=== PATIENT | male | born 1955 | race Two or more races ===

== ENCOUNTER 2017-03-22 21:45 | Emergency (ER) | payer SELFPAY ==
[~2017-03-22 21:45] MED LIST: AMOXICILLIN500 M1 PO; CIPRO250 M2 PO; CIPRO500 M2 PO; FLOMAX0.4 M1 PO; LISINOPRIL10 M1 PO; MIRALAX17 G2 PO; TAMSULOSIN HCL0.4 M1 PO; ZESTRIL10 M3 PO
[2017-03-22 23:22] LABS: URINE BILIRUBIN NEGATIVE (NEG); URINE BLOOD LARGE (NEG); URINE GLUCOSE (UA) NEGATIVE (NEG); URINE KETONE MODERATE (NEG); URINE LEUKOCYTE ESTERASE POSITIVE (NEG); URINE NITRITE NEGATIVE (NEG); URINE PROTEIN LARGE (NEG)
[2017-03-22 23:23] LABS: URINE APPEARANCE BLOODY; URINE COLOR RED
[2017-03-22 23:24] LABS: URINE EPITHELIAL CELLS 0 /[HPF] (0-10); URINE RBC FULL FIELD /[HPF] (0-5)
[2017-03-23] MEDS ORDERED: FLOMAX0.4 M1 PO (00:15)
[2017-03-23] MEDS ORDERED: CIPRO500 M2 PO (00:15)
== END 2017-03-23 00:37 ==
LOC: EDMED 21:45
PROVIDERS: Emergency Medicine
DX: N39.0 Urinary tract infection, site not specified (principal); R33.9 Retention of urine, unspecified; I10 Essential (primary) hypertension; Z79.899 Other long term (current) drug therapy

== ENCOUNTER 2017-03-25 16:11 | Emergency (ER) | payer SELFPAY ==
[2017-03-25] MEDS ORDERED: FLOMAX0.4 M1 PO (18:03)
== END 2017-03-25 18:24 ==
LOC: EDMED 16:11
DX: N39.0 Urinary tract infection, site not specified (principal); R31.9 Hematuria, unspecified; Z76.0 Encounter for issue of repeat prescription

== ENCOUNTER 2017-03-26 10:59 | Emergency (ER) | payer SELFPAY ==
[2017-03-26 12:02] LABS: BASO % 0.2 % (0-2); EOS % 0.5 % (0-7); HCT-HEMATOCRIT 37.8 % (36.0-53.5); HGB-HEMOGLOBIN 12.6 gm/dl (13.5-17.0); IMMATURE GRANULOCYTES ABSOLUTE 0.01 tho/cmm (0-0.03); IMMATURE GRANULOCYTES PERCENT 0.2 % (0-0.3); LYMPH ABSOLUTE COUNT 1.4 tho/cmm (0.8-4.5); MCH (MEAN CORPUSCULAR HGB) 30.2 pg (28.0-32.0); MCHC MEAN CORPUSCULAR HGB CONC 33.3 % (32.0-36.0); MCV (MEAN CELL VOLUME) 90.6 fl (82.0-96.0); MEAN PLATELET VOLUME 9.8 cmc (9.4-12.4); MONO % 6.8 % (0-12); MONOCYTE ABSOLUTE COUNT 0.4 tho/cmm (0.0-1.2); NEUTROPHIL ABSOLUTE COUNT 3.8 tho/cmm (1.6-8.0); NEUTROPHIL-AUTOMATED 3.8 tho/cmm (1.6-8.0); NEUTROPHILS % 67.3 % (40-80); PLATELET COUNT 241 tho/cmm (150-450); RED BLOOD COUNT 4.17 mil/cmm (4.40-5.70); WHITE BLOOD COUNT 5.6 tho/cmm (4.0-10.0)
[2017-03-26 12:04] LABS: PROTHROMBIN TIME 11.8 SECONDS (9.0-13.6)
[2017-03-26 12:09] LABS: ANION GAP 15 mmol/L (0-20); BLOOD UREA NITROGEN 17 mg/dl (6-24); CALCIUM 8.2 mg/dl (8.5-10.5); CARBON DIOXIDE-VENOUS 23 mmol/L (22-32); CHLORIDE 110 mmol/l (96-110); CREATININE 0.79 mg/dl (0.60-1.30); GLUCOSE 100 mg/dL (70-110); POTASSIUM 3.9 mmol/L (3.7-5.1); SODIUM 144 mmol/L (135-145); eGFR VALUE FOR BLACK >90 mL/Min
== END 2017-03-26 13:31 ==
LOC: EDMED 10:59
PROVIDERS: Emergency Medicine
PROC: 0T9B70Z Drainage of Bladder with Drainage Device, Via Natural or Artificial Opening (ICD-10-PCS; principal; 2017-03-26)
DX: R33.9 Retention of urine, unspecified (principal); R31.0 Gross hematuria